=== PATIENT | male | born 1995 | race Caucasian/White ===

== ENCOUNTER 2017-07-03 22:05 | Emergency (ER) | payer OTHER ==
[2017-07-03 22:13] VITALS: BP 130/85; PULSE 76; TEMP 97.7; BMI 21.9
--- NOTE | 2017-07-04 01:01 | PDOC ---
History of Present Illness - General Chief Complaint: Wound Stated Complaint: INFECTED R 1ST DIGIT Time Seen by Provider: 07/03/17 22:14 - History of Present Illness Initial Comments: This 21-year-old man presents with a few day history of worsening redness/ purulent drainage/pain and edema of the right thumb. No history of injury to the area No previous history of finger infection/paronychia. Patient denies chewing his fingernails. He has no pain with movement of the thumb. There is been no fever/chills. 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 Past History - Past Medical History Allergies/Adverse Reactions: Allergies Allergy/AdvReac Type Severity Reaction Status Date / Time No Known Allergies Allergy Unverified 07/03/17 22:09 Home Medications: Ambulatory Orders Amox-Tr/K Cl [Augmentin - 875Mg Tablet] 1 tab PO BID #14 tablet 07/04/17 CVA: No COPD: No Other medical history: TOF - Immunization History Immunization Up to Date: Yes - Suicide/Smoking/Psychosocial Hx Smoking History: Never smoked Have you smoked in the past 12 months: No Number of Cigarettes Smoked Daily: 0 Information on smoking cessation initiated: No Hx Alcohol Use: No Drug/Substance Use Hx: No Substance Use Type: None *Physical Exam - Vital Signs Last Vital Signs Temp Pulse Resp BP Pulse Ox 97.7 F 76 14 130/85 100 07/03/17 22:11 07/03/17 22:11 07/03/17 22:11 07/03/17 22:11 07/03/17 22:11 Progress Note - Progress Note Progress Note: Clinical presentation consistent with paronychia of the right thumb. Drainage of the area as noted above. Wound culture of drainage sent for culture and sensitivity Patient to be started on Augmentin 875/125 twice a day for one week. Return to the emergency room if he has worsening pain/swelling/redness *DC/Admit/Observation/Transfer Diagnosis at time of Disposition: Paronychia of right thumb - Discharge Dispostion Disposition: HOME Condition at time of disposition: Stable - Prescriptions Prescriptions: Amox-Tr/K Cl [Augmentin - 875Mg Tablet] 1 tab PO BID #14 tablet - Referrals - Patient Instructions Printed Discharge Instructions: Paronychia Additional Instructions: Keep dressing in place as dry as possible until July 05 a.m. Take packing out Saturday morning After packing removed, warm soaks 3 times a day Elevate right hand is much as possible for the next 24 hours Augmentin 875/125 twice a day for 1 week Return here or see your doctor if swelling/pain persists - Post Discharge Activity
[2017-07-04] MEDS ORDERED: AMOX TR/POT CLAV 875MG/125MG TABLETS (FP) PO ONE (01:21)
[2017-07-04] MEDS ORDERED: AMOX TR/POT CLAV 875MG/125MG TABLETS (FP) ONE (01:23)
[2017-07-04] MEDS ORDERED: NAPROXEN 375 MG TABLET (FP) PO ONE (01:26)
[2017-07-04] MEDS ORDERED: NAPROXEN 375 MG TABLET (FP) ONE (01:35)
== END 2017-07-04 01:36 | disposition home or self-care (01) ==
LOC: FER 22:05
DX: L03.011 Cellulitis of right finger (principal)
CPT/HCPCS: 87070; 87186; 87205; 99282-25

== ENCOUNTER 2021-04-06 22:10 | Emergency (ER) | payer OTHER ==
[2021-04-06 22:19] VITALS: BMI 22.4
[2021-04-06 22:40] VITALS: BP 108/64; PULSE 74; TEMP 98.5
[2021-04-06] MEDS ORDERED: AMOX TR/POT CLAV 875MG/125MG TABLETS (FP) PO ONE (22:51)
[2021-04-06] MEDS ORDERED: AMOX TR/POT CLAV 875MG/125MG TABLETS (FP) ONE (22:54)
== END 2021-04-06 23:01 | disposition home or self-care (01) ==
LOC: FER 22:10
DX: L03.032 Cellulitis of left toe (principal)
CPT/HCPCS: 99283-25